=== PATIENT | male | born 1965 | race Caucasian/White ===

== ENCOUNTER 2020-06-14 13:18 | Outpatient (CLI) | payer OTHER ==
[2020-06-14 14:16] VITALS: BP 146/94
--- NOTE | 2020-06-14 14:16 | SLEEP CARE CONSULTATION ---
Information from patient questionnaire entered by Juan Gomez. I have reviewed and concur with the information entered by Juan Gomez. This document represents the service I personally performed and the decisions made by me, Odette Landon ARNP. History of Present Illness Service Date and Time: 06/14/2020 1318 Reason for Visit: New patient Chief Complaint: reports: Unrefreshed sleep, Snoring, Excessive daytime sleepiness, Observed pauses in breathing, Fatigue, Frequent awakenings at night Date of Onset: 5 years Usual bedtime: 8:30 PM Time it takes to fall asleep: 10 minutes Snores at night: Yes Observed to quit breathing while asleep: Yes Sleeps alone due to snoring: No Number of times waking at night: 5 Reasons for waking at night: reports: Snoring, Gasping for air, Bathroom. denies: Choking Toss, Turn, or Twitch while sleeping: Yes Recalls having dreams: Yes Usually gets out of bed at: 6 AM Feels refreshed in the morning: No Morning headache: Yes (3 out of 7 days, lasting 2 hours) Sleepy or fatigued during the day: Yes Ever fallen asleep while driving: No (no drowsy driving) Takes day naps: No Dreams during day naps: No Prior sleep studies: No Additional HPI information: I had the pleasure of seeing ELIANA RAMÍREZ today regarding the possibility of him having a sleep disorder. His current complaints are snoring, observed pauses in breathing, frequent night awakenings, unrefreshed sleep, excessive daytime sleepiness and fatigue. He has hypothyroidism. He sometimes feels like he cannot fill his lungs up, especially when laying down trying to sleep. He was talking about this with his PCP who recommended he have a sleep study. He is overweight and thought it was his stomach pushing on his diaphragm limiting his ability to take a deep breath. He cannot sleep past 6 AM because of the feeling that he cannot breathe deeply enough. He also has noticed that when he eats certain foods like corn he feels bloated and "inflamed". When this happens he feels he sleeps worse and the snoring is worse. He is trying to limit those foods that cause this reaction. He has a morning headache normally after these times and the next morning he feels groggy with brain fog. - Parasomnia Symptoms Ever been unable to move upon waking from sleep: Yes (can see himself sleeping; only when super tired) Walks in sleep: No Talks in sleep: No Ever acted out dreams in sleep: Yes (had some episodes in past of sitting up/staring/without awareness) Ever felt weak in the knees when startled or emotional: No Bothered by creepy, crawly, restless sensations in legs: No Problems with memory or concentration: Yes (groggy mind and fogginess after snoring night) Subjective Initial [place] Sleepiness Scale score: 7 (in 2020) Past Medical History Past Medical History: reports: Hypothyroidism, Other (glaucoma). 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 Patient is and lives in [place]. Have you smoked in the past 12 months: No Alcohol use: No Caffeine use: Yes Caffeine amount and frequency: 1 coffee or tea a day Family History Family history of sleep disordered breathing: No Family Hx Sleep Apnea: Mother: Snoring Allergies and Home Medications Drug allergies reviewed: Yes (NKDA) Home medication list reviewed: Yes Allergy and home medication list: Levothyroxine 100 mcg Latanoprost Timolol Review of Systems Weight gain over past 5 years: 70 Cardiovascular: denies: high blood pressure, irregular heart rate or pulse Gastrointestinal: denies: heartburn Urinary: reports: frequency Neurological: reports: headaches Psychiatric: denies: anxiety, depression, mood disorder Ear/Nose/Throat: reports: nasal congestion, sinus problems, dry mouth/throat (sometimes). denies: tonsillectomy, wisdom teeth removed Endocrine: reports: thyroid disease, sluggishness (tired) Immunologic: reports: allergies to food or environment (thinks has corn and chocolate sensitivity) Physical Exam Blood Pressure: 146/94 Cuff size: wrist Heart Rate: 66 O2 Saturation: 98 Height: 6 ft Weight: 367 lb Body Mass Index: 49.7 BMI Classification: Morbidly Obese Neck circumference: 21.25 (inches) Nostrils: patent to airflow Turbinates: swollen Mouth and throat: narrow oropharynx Soft palate: long Hard palate: arched Uvula visualization: 50% Mallampati Class II Tongue: enlarged in size with teeth montiel on lateral edges Tonsils: 1+ Heart: regular rate and rhythm Lungs: clear bilaterally Impression and Plan 1. Suspected Obstructive Sleep Apnea-Hypopnea Syndrome, as suggested by a history of loud and irregular snoring, observed cessation of breath while asleep, gasping or choking in sleep, morning headache, frequent awakening during the night, unrefreshed sleep, cognitive impairment, and excessive daytime sleepiness. I reviewed with the patient that a narrow oropharynx and obesity are common predisposing factors for obstructive sleep apnea-hypopnea syndrome. I recommend proceeding to polysomnography to confirm the diagnosis and to assess severity. If the patient has significant sleep disordered breathing, a manual CPAP titration study will also be performed to find the optimal treatment pressure. I informed the patient of what the sleep studies involve and after some discussion, obtained agreement to proceed. The pathophysiology of obstructive sleep apnea-hypopnea syndrome was discussed with the patient and health risks of cardiovascular and cerebrovascular disease if not treated. AAS brochure for obstructive sleep apnea-hypopnea syndrome given and reviewed. Risks of drowsy driving discussed in detail and patient advised to avoid long distance driving and to taffy puller at the first sign of drowsiness. Patient agreed to plan. * Schedule polysomnography +- manual CPAP titration study and return in 1-2 weeks after the study to discuss result and initiate therapy. * Avoid long distance driving or driving when feeling sleepy. * Avoid alcohol, sedative and muscle relaxant around bedtime. * Attempt to lose weight. * Review instructions provided by trained office staff on how to prepare for the sleep study. * Return for follow-up after sleep study completed. Counseling Topics: Weight loss health impact Visit Type: In Office Time Spent with Patient (minutes): 30 Provider Statement: I spent 100% of the Face to Face Visit with the patient with greater than 50% spent counseling the patient and coordination of care.
== END 2020-06-14 13:19 | disposition home or self-care (01) ==
LOC: SC 13:18
PROVIDERS: ATTEND Nurse Practitioner Family
DX: G47.10 Hypersomnia, unspecified (principal); R41.89 Other symptoms and signs involving cognitive functions and awareness; G47.8 Other sleep disorders; R51.9 Headache, unspecified; R06.81 Apnea, not elsewhere classified; R06.83 Snoring; E66.01 Morbid (severe) obesity due to excess calories; Z68.42 Body mass index [BMI] 45.0-49.9, adult
CPT/HCPCS: 99203; 99212

== ENCOUNTER 2020-06-29 10:49 | Outpatient (CLI) | payer OTHER | END 2020-06-29 10:50 | disposition home or self-care (01) | LOC: SC 10:49 | PROVIDERS: ATTEND Nurse Practitioner Family | DX: G47.33 Obstructive sleep apnea (adult) (pediatric) (principal); R09.02 Hypoxemia; E66.9 Obesity, unspecified; Z68.42 Body mass index [BMI] 45.0-49.9, adult | CPT/HCPCS: 95806 ==

== ENCOUNTER 2020-07-06 13:05 | Outpatient (CLI) | payer OTHER ==
--- NOTE | 2020-07-06 13:35 | SLEEP CARE CONSULTATION ---
Information from patient questionnaire entered by Juan Gomez. I have reviewed and concur with the information entered by Juan Gomez. This document represents the service I personally performed and the decisions made by me, Odette Landon ARNP. History of Present Illness Service Date and Time: 07/06/2020 1305 Initial [place] Sleepiness Scale score: 7 (in 2020) Current [place] Sleepiness Scale score: 12 Additional HPI information: ELIANA RAMÍREZ returns for follow up and results of the recently performed home sleep study. I explained the pathophysiology behind obstructive sleep apnea. We then spent quite a bit of time discussing different treatment options. For mild obstructive sleep apnea, surgery and oral appliance are alternatives to nasal CPAP therapy but in moderate or severe cases, nasal CPAP is the most effective and reliable treatment. Because apnea is primarily in supine position, then positional management therapy could be effective. Methods discussed such as positioning with pillows, using a T-shirt with tennis balls in the back, and shown commercial products that have a pillow format on back to prevent supine sleep. I reviewed the impact of weight changes on sleep apnea and strongly recommended losing weight. After some discussion, the patient opted to go with the nasal CPAP therapy. Nasal autoCPAP set at 4-15 cmH20 will be ordered with rationale explained. A manual titration study will be ordered if unable to find optimal pressure with office adjustments. I explained how CPAP machine works with sample devices Respironics Dreamstation and ResDeenty [id number] and what to expect when using the machine. Using CPAP every night in order to get used to it was emphasized. Patient advised to put CPAP mask on before getting into bed so as not to fall asleep without CPAP. To assist acclimation to CPAP use, it could also be used for a short time during day while reading or watching TV. The patient was instructed to call the CPAP supplier to discuss any mechanical problem that may occur. If the mask given is uncomfortable or is difficult to keep on through the night even with adjustment, contact the CPAP supplier as many will replace with another mask style if notified before 30 days. If snoring or perceives is not getting enough air or too much air from the machine, notify this office. [facility] patient education PAP tips reviewed and given to patient. Patient counseled not drink alcohol less than 4 hours before bedtime as it can increase snoring and apnea. Patient was cautioned about risks of drowsy driving until sleepiness symptoms resolve. Sleep Study - Results Type of Sleep Study: Home sleep study Prior sleep studies: No Polysomnography/Home Sleep Study results: Physician Impression: The quality of the study is good. The length of the study is adequate (> 240 minutes). Please also see the tabulated and graphic data. 1. Obstructive Sleep Apnea-Hypopnea (ICD-10 G47.33), severe, with an AHI of 49.9 /hr and toya SaO2 of 63%. During the study, the patient had 284 apneas (284 obstructive, 0 central, 0 mixed) and 150 hypopneas. The longest episode lasted 71.5 seconds. The respiratory events occurred independently of body position (supine AHI was 55.9 and non-supine, 42.75). 2. Hypoxemia (ICD-10 R09.02), moderate, with the lowest oxygen saturation of 63 % and 125.3 minutes with SaO2 under 90%. Baseline oxygen saturation was normal (Average oxygen saturation was 91%). 3. Tachycardia, with maximum recoded heart rate of 151 beats per minute. However, this appears to be an artifact. Allergies and Home Medications Home medication list reviewed: Yes (no changes) Review of Systems Review of systems same as previous: Yes (no changes) Physical Exam Heart Rate: 72 O2 Saturation: 96 Height: 6 ft Weight: 366 lb Body Mass Index: 49.6 BMI Classification: Morbidly Obese Impression and Plan 1. Obstructive Sleep Apnea-Hypopnea Syndrome, severe, with lowest oxygen saturation of 63%. Obviously this is the cause of the patients symptoms of unrefreshed sleep, and excessive daytime sleepiness. Positive pressure therapy could benefit his overall health and reduce risks of cardiovascular or cerebrovascular adverse events. As mentioned above, the patient will be started on nasal autoCPAP therapy with pressure set at 4-15 cmH2O. A manual titration study will be completed if unable to find optimal treatment pressure with office adjustments. Compliance guidelines also reviewed. A copy of compliance guidelines will be given for reference at check out. Because the apnea is more severe supine, I instructed to avoid sleeping supine using pillow positioning until able to start CPAP use. * Nasal auto CPAP therapy, pressure at 4-15 cm H2O. * Attempt to lose weight. * Avoid alcohol consumption near bedtime. * Avoid supine sleep until using CPAP. * The patient is again cautioned about driving until sleepiness completely resolves. * Return one month after CPAP obtained. I will assess response to therapy and c ompliance at that time. Counseling Topics: Weight loss health impact Visit Type: In Office Time Spent with Patient (minutes): 21 Provider Statement: I spent 100% of the Face to Face Visit with the patient with greater than 50% spent counseling the patient and coordination of care.
== END 2020-07-06 13:06 | disposition home or self-care (01) ==
LOC: SC 13:05
PROVIDERS: ATTEND Nurse Practitioner Family
DX: G47.33 Obstructive sleep apnea (adult) (pediatric) (principal); E66.01 Morbid (severe) obesity due to excess calories; Z68.42 Body mass index [BMI] 45.0-49.9, adult
CPT/HCPCS: 99212; 99213

== ENCOUNTER 2020-09-28 10:32 | Outpatient (CLI) | payer OTHER ==
--- NOTE | 2020-09-28 10:59 | SLEEP CARE CONSULTATION ---
Information from patient questionnaire entered by Destiny Zimmerman. I have reviewed and concur with the information entered by Destiny Zimmerman. This document represents the service I personally performed and the decisions made by , Odette Landon ARNP. History of Present Illness Service Date and Time: 09/28/2020 1032 Previous diagnosis: Severe, Obstructive Sleep Apnea-Hypopnea Syndrome AHI: 49.9 (in 2020) Reason for follow up: first compliance Equipment type: CPAP Equipment obtained from: [facility] (getting supplies as needed) Mask style: Nasal pillows Mask brand: Resmed (AirFit P10) Backup mask available: No (will keep old mask when replaced) Last cushion change: 1 week ago Prior sleep studies: Yes Year and Where: 2020 - [facility] Type of Sleep Study: Home sleep study HPI additional information: ELIANA RAMÍREZ was diagnosed to have severe, AHI 49.9, obstructive sleep apnea- hypopnea syndrome and returned today for CPAP therapy first compliance follow- up. CPAP Compliance Data - Data Reviewed with Patient Average duration of nightly device use: 8 hr 30 min Compliance rate %: 100 Current pressure setting (cmH2O): 4-15 (median 7.9, avg 10.4, max 12.0) Humidity settin Average residual AHI: 2.1 Subjective Patient concerns: reports: condensation in mask/hose (sometimes), nasal congestion, dry mouth, nose, throat (dry nose, rarely). denies: aerophagia, mask discomfort, air blowing in eyes, mask leak noise, epistaxis, other Observed to snore while using device: No Current pressure setting perceived as: comfortable On therapy, patient: reports: sleeping better, awakening more refreshed, being more awake and alert during the day, more rested overall. denies: drowsiness while driving Initial [place] Sleepiness Scale score: 7 (in 2020) Current [place] Sleepiness Scale score: 0 Allergies and Home Medications Home medication list reviewed: Yes (no new meds) Review of Systems Review of systems same as previous: Yes (no changes) Physical Exam Heart Rate: 70 O2 Saturation: 96 Height: 6 ft Weight: 363 lb Weight change since last visit: 3 lb loss Body Mass Index: 49.2 BMI Classification: Morbidly Obese Impression and Plan 1. Obstructive Sleep Apnea-Hypopnea Syndrome, severe, with excellent treatment compliance and good apnea control. On CPAP therapy, the patient has better sleep quality and is more rested overall. He has had some nasal congestion interfering with using the CPAP. He has adjusted his humidity and used nasal rinses with some improvement, but sometimes he just cannot breathe through his nose so he stops using the CPAP. He occasionally has noted some condensation in the tubing but states if he keeps it under his blankets this does not occur. He has also occasionally had some dry nasal passages. He will apply a topical ointment with good improvement. Nasal dryness can be reduced with increasing the CPAP humidity and the heated hose can be increased if condensation. He voiced understanding and agreement with plan. I will adjust his pressure to 8-12 cmH2O to reflect pressures he has been using and have him follow up in 1-2 months for a recheck. Patient's apnea severity and rationale for treatment to reduce apnea, improve sleep quality and reduce cardiovascular and cerebrovascular events was reviewed. * Change auto CPAP pressure to 8-12 cmH2O * Notify me if snoring with mask or feeling that the pressure is too much or too little * Attempt to lose weight * Call this office if any problems using CPAP * Return for follow up in 1-2 months, or sooner if concerns arise Counseling Topics: Spare mask, Weight loss health impact Visit Type: In Office Time Spent with Patient (minutes): 21 Provider Statement: I spent 100% of the Face to Face Visit with the patient with greater than 50% spent counseling the patient and coordination of care.
== END 2020-09-28 10:33 | disposition home or self-care (01) ==
LOC: SC 10:32
PROVIDERS: ATTEND Nurse Practitioner Family
DX: G47.33 Obstructive sleep apnea (adult) (pediatric) (principal); E66.01 Morbid (severe) obesity due to excess calories; Z68.42 Body mass index [BMI] 45.0-49.9, adult
CPT/HCPCS: 99212; 99213

== ENCOUNTER 2020-11-30 15:10 | Outpatient (CLI) | payer OTHER ==
--- NOTE | 2020-11-30 15:35 | SLEEP CARE CONSULTATION ---
Information from patient questionnaire entered by Destiny Zimmerman. I have reviewed and concur with the information entered by Destiny Zimmerman. This document represents the service I personally performed and the decisions made by , Odette Landon ARNP. History of Present Illness Service Date and Time: 11/30/2020 1510 Previous diagnosis: Severe, Obstructive Sleep Apnea-Hypopnea Syndrome AHI: 49.9 (in 2020) Reason for follow up: other (2 month with pressure change) Equipment type: CPAP Equipment obtained from: [facility] (getting supplies as needed) Mask style: Nasal pillows Mask brand: Resmed (AirFit P-10) Backup mask available: Yes (has extra pillows) Last cushion change: 1 month ago Prior sleep studies: Yes Year and Where: 2020 - [facility] Type of Sleep Study: Home sleep study HPI additional information: ELIANA RAMÍREZ was diagnosed to have severe, AHI 49.9, obstructive sleep apnea- hypopnea syndrome and returns via Telehealth visit today for CPAP therapy two month with pressure change follow-up. CPAP Compliance Data - Data Reviewed with Patient Average duration of nightly device use: 9 hr 2 min Compliance rate %: 100 (60 days) Current pressure setting (cmH2O): 8-12 Humidity settin Average residual AHI: 1.0 Subjective Patient concerns: denies: aerophagia, mask discomfort, air blowing in eyes, mask leak noise, condensation in mask/hose, nasal congestion, dry mouth, nose, throat, epistaxis, other Observed to snore while using device: No Current pressure setting perceived as: comfortable On therapy, patient: reports: sleeping better, awakening more refreshed, being more awake and alert during the day, more rested overall. denies: drowsiness while driving Initial [place] Sleepiness Scale score: 7 (in 2020) Current [place] Sleepiness Scale score: 2 Allergies and Home Medications Home medication list reviewed: Yes (no new meds) Review of Systems Review of systems same as previous: Yes (no changes) Physical Exam Vital signs obtained and entered by: Telehealth visit to reduce risks during covid pandemic Height: 6 ft Impression and Plan 1. Obstructive Sleep Apnea-Hypopnea Syndrome, severe, with excellent treatment compliance and good apnea control. On CPAP therapy, the patient has better sleep quality and is more rested overall. Patient has felt the pressure change has been very good. He has no complaints and even the oral dryness has improved with increasing humidity on his machine. His compliance is excellent and we h ave really good apnea control at current settings. I will follow up with him in about 3 months. Patient's apnea severity and rationale for treatment to reduce apnea, improve sleep quality and reduce cardiovascular and cerebrovascular events was reviewed. * Continue auto CPAP pressure at 8-12 cmH2O * Notify me if snoring with mask or feeling that the pressure is too much or too little * Attempt to lose weight * Call this office if any problems using CPAP * Return for follow up in 3 months, or sooner if concerns arise Counseling Topics: Spare mask, Weight loss health impact Visit Type: Telehealth Video Video Type: VSee Patient Location: Home Location of Provider: Office Patient agrees and consents to this telehealth visit type: Yes Patient agrees to have their insurance billed: Yes Time Spent with Patient (minutes): 11 Provider Statement: I spent 100% of the Telehealth Video Call with the patient with greater than 50% spent counseling the patient and coordination of care.
== END 2020-11-30 15:11 | disposition home or self-care (01) ==
LOC: SC 15:10
PROVIDERS: ATTEND Nurse Practitioner Family
DX: G47.33 Obstructive sleep apnea (adult) (pediatric) (principal)

== ENCOUNTER 2021-03-15 10:28 | Outpatient (CLI) | payer BC, OTHER ==
--- NOTE | 2021-03-15 10:41 | SLEEP CARE CONSULTATION ---
Information from patient questionnaire entered by Magui Velasquez. I have reviewed and concur with the information entered by Magui Velasquez. This document represents the service I personally performed and the decisions made by me, Odette Landon ARNP. History of Present Illness Service Date and Time: 03/15/2021 1020 Previous diagnosis: Severe, Obstructive Sleep Apnea-Hypopnea Syndrome AHI: 49.9 (in 2020) Reason for follow up: three month Equipment type: CPAP Equipment obtained from: [facility] (getting supplies as needed) Mask style: Nasal pillows Backup mask available: Yes (old mask) Last cushion change: 1-2 months Prior sleep studies: Yes Year and Where: 2020 - [facility] Type of Sleep Study: Home sleep study HPI additional information: ELIANA RAMÍREZ was diagnosed to have severe, AHI 49.9, obstructive sleep apnea- hypopnea syndrome and returns via video telehealth visit today for CPAP therapy three month follow-up. Sleep Study - Results Type of Sleep Study: Home sleep study Prior sleep studies: Yes Year and Where: 2020 - [facility] CPAP Compliance Data - Data Reviewed with Patient Average duration of nightly device use: 9 hours 15 minutes Compliance rate %: 100 Current pressure setting (cmH2O): 8-12 Average residual AHI: 0.6 Central apnea: 0 Obstructive apnea: .3 Hypopnea: .2 Subjective Patient concerns: reports: condensation in mask/hose (usually in the winter, uses his heated hose), nasal congestion (occasionally, uses Neti pot). denies: aerophagia, mask discomfort, air blowing in eyes, mask leak noise, dry mouth, nose, throat, epistaxis, other Observed to snore while using device: No Current pressure setting perceived as: comfortable On therapy, patient: reports: sleeping better, awakening more refreshed, being more awake and alert during the day, more rested overall. denies: drowsiness while driving Initial [place] Sleepiness Scale score: 7 (in 2020) Current [place] Sleepiness Scale score: 2 Allergies and Home Medications Home medication list reviewed: Yes (no changes) Review of Systems Review of systems same as previous: Yes (no changes) Physical Exam Vital signs obtained and entered by: Telehealth visit to reduce exposure during covid pandemic Height: 6 ft Impression and Plan 1. Obstructive Sleep Apnea-Hypopnea Syndrome, severe, with excellent treatment compliance and excellent apnea control. On CPAP therapy, the patient has better sleep quality and is more rested overall. Patient is very satisfied with current CPAP treatment. He has a little bit of nasal congestion due to allergies and uses a Lyubov pot as needed. He also gets some condensation in his hose in the wintertime and just adjusts his heated hose to accommodate. He denies any issues or concerns with CPAP use. Patient was encouraged to lose weight for their overall health and to reduce apneas. Patient's apnea severity and rationale for treatment to reduce apnea, improve sleep quality and reduce cardiovascular and cerebrovascular events was reviewed. Patient was encouraged to lose weight for their overall health and to reduce apneas. * Continue auto CPAP pressure at 8-12 cmH2O * Notify me if snoring with mask or feeling that the pressure is too much or too little * Attempt to lose weight * Call this office if any problems using CPAP * Return for follow up in 6 months, or sooner if concerns arise Counseling Topics: Weight loss health impact Visit Type: Telehealth Video Video Type: VSee Patient Location: Home Location of Provider: Office Patient agrees and consents to this telehealth visit type: Yes Patient agrees to have their insurance billed: Yes Time Spent with Patient (minutes): 15 Provider Statement: I spent 100% of the Telehealth Video Call with the patient with greater than 50% spent counseling the patient and coordination of care.
== END 2021-03-15 10:29 | disposition home or self-care (01) ==
LOC: SC 10:28
PROVIDERS: ATTEND Nurse Practitioner Family
DX: G47.33 Obstructive sleep apnea (adult) (pediatric) (principal)